=== PATIENT | female | born 1965 | race Caucasian/White ===

== ENCOUNTER 2018-12-05 23:32 | Inpatient (IN) | payer OTHER ==
[~2018-12-05] VITALS: Ht 152.4 cm; Wt 78.8 kg
[2018-12-05 23:34] VITALS: BP 132/94
[2018-12-06] VITALS (24 sets, daily range): BP systolic 118–191; BP diastolic 61–108
[2018-12-06 00:14] LABS: BASOPHILS 0.3 % (0.0-2.0); EOSINOPHILS 1.6 % (0.0-3.0); HEMATOCRIT 39.3 % (37.0-47.0); HEMOGLOBIN 12.8 gm/dL (12.0-15.0); LYMPHOCYTES 38.2 % (24.0-44.0); MCHC 32.6 g/dL (28.0-37.0); MCV 98.1 fL (80.0-100.0); MONOCYTES 6.6 % (1.0-8.0); PLATELET COUNT 325 thou/uL (150-400); POLYS 53.3 % (36.0-66.0); RDW 13.4 % (10.5-14.5); WBC 9.3 thou/uL (4.0-11.0)
[2018-12-06 00:17] LABS: URINE BILIRUBIN NEGATIVE (Negative); URINE BLOOD NEGATIVE (Negative); URINE CLARITY CLEAR; URINE COLOR YELLOW; URINE GLUCOSE-RANDOM* 3+ (Negative); URINE KETONES NEGATIVE (Negative); URINE LEUKOCYTES-REFLEX TRACE (Negative); URINE NITRITE-REFLEX NEGATIVE (Negative); URINE PROTEIN (DIPSTICK) NEGATIVE (Negative); URINE SPECIFIC GRAVITY <= 1.005 (1.005-1.035); URINE UROBILINOGEN 0.2 E.U./dl (0.2-1.0)
[2018-12-06 00:24] LABS: ANION GAP 13 mmol/L (7-16); BUN 7 mg/dL (7-18); CALCIUM 8.1 mg/dL (8.5-10.1); CHLORIDE 96 mmol/L (98-107); CO2 25 mmol/L (21-32); MAGNESIUM 1.7 mg/dL (1.8-2.4); POTASSIUM 3.1 mmol/L (3.5-5.1); SALICYLATE 3.8 mg/dL (2.8-20.0); SODIUM 134 mmol/L (136-145)
[2018-12-06 00:26] LABS: AMP/METHAMP Negative (Negative); BARBITURATES Negative (Negative); BENZODIAZEPINES Negative (Negative); COCAINE Negative (Negative); METHADONE Negative (Negative); OPIATES Negative (Negative); PCP Negative (Negative)
[2018-12-06 00:34] LABS: GLUCOSE 528 mg/dL (74-106)
--- NOTE | 2018-12-06 00:56 | NUR ---
PATIENT ARRIVES WITH EMPTY BOTTLE OF LYRICA 50MG (60 TABS FILLED 09/15/18) EMPTY BOTTLE OF EFFEXOR ER 75MG (30 TABS FILLED 05/13/18) EMPTY BOTTLE OF EFFEXOR ER 150 MG (30 TABS FILLED 05/13/18) LISINOPRIL 20 MG (30 TABS FILLED (09/15/18) - 3 TABS LEFT GABAPENTIN 300 MG (120 CAPS FILLED 09/15/18) - 27 CAPS LEFT [place] AMOUNT OF MEDICATION INGESTED
[2018-12-06] MEDS ORDERED: EFFEXOR XR150 MG PO (01:02)
[2018-12-06] MEDS ORDERED: LYRICA 50 MG50 MG PO (01:03)
[2018-12-06] MEDS ORDERED: LISINOPRIL2.5 MG PO (01:03)
[2018-12-06] MEDS ORDERED: NEURONTIN300 MG PO (01:03)
[2018-12-06] MEDS ORDERED: METFORMIN HCL500 M3 PO (01:04)
[2018-12-06 04:44] LABS: ANION GAP 13 mmol/L (7-16); BUN 5 mg/dL (7-18); CALCIUM 7.6 mg/dL (8.5-10.1); CHLORIDE 101 mmol/L (98-107); CO2 23 mmol/L (21-32); CREATININE 0.7 mg/dL (0.6-1.0); GLUCOSE 281 mg/dL (74-106); POTASSIUM 3.6 mmol/L (3.5-5.1); SODIUM 137 mmol/L (136-145)
--- NOTE | 2018-12-06 07:20 | NUR ---
REPORT TO DAY SHIFT RNSAL
--- NOTE | 2018-12-06 14:10 | EKG ---
[address] [address] ELECTROCARDIOGRAM REPORT Name: LONA MILAN Room #: 203-P [facility] IN .R.#: [id number] Admission: 12/06/18 Attend Phys: Lan Colon MD Discharge: Date of : 67 Report #: [id number] THIS REPORT FOR: //name// [facility] ED Test Date: 2018-12-06 Test Time: 00:41:42 Pat Name: LONA MILAN Department: Room: [facility] Gender: F Disability Aide: THIERNO : 1965 Requested By: Armando Anand Order Number: [id number] MD: Kiran Farmer Measurements Intervals [place] Rate: 109 P: 81 WV: 136 QRS: 59 QRSD: 88 T: -88 QT: 395 QTc: 533 Interpretive Statements Sinus tachycardia Borderline T abnormalities, inferior leads No previous ECG available for comparison Electronically Signed On 12-06-2018 14:10:11 CDT by Kiran Farmer [email or web address] <ELECTRONICALLY SIGNED> By: Kiran Farmer MD 12/06/18 1410 0041 Kiran Farmer MD /TINY
--- NOTE | 2018-12-06 18:09 | NUR ---
PT CARE ASSUMED APPROX 1240 FROM ED. PT DROWSY, EASILY AROUSABLE BUT DOES NOT SUSTAIN WAKEFULNESS. 1:[address] DUE TO PT BEING SUICIDE ATTEMPT. DENIES PAIN AND SOA. VSS. O2 IN PLACE. PT DESATURATES WITHOUT 3LNC. PT FOLLOWING SIMPLE COMMANDS AND ANSWERING YES/NO TO SIMPLE QUESTIONS. ALCOHOL WITHDRAWL ASSESSMENT IS LESS THAN 8 BUT WAS INCREASING PT BECAME MORE AROUSABLE. WILL CONTINUE WITH ASSESSMENTS Q4. PT TOLERATING POC. NSG ASSISTED PT IN CONTACTING FAMILY MEMEBERS. NO ONE AT BEDSIDED AT ANY POINT SINCE CARE ASSUMED. PT UP TO BSC WITH MIN 1 PERSON ASSIST. NO DISTRESS NOTED.
[2018-12-06 18:51] LABS: BE(vivo) -10.9 mmol/L (-2 to +3); HCO3 19.5 mmol/L (22.0-26.0); PCO2 62.5 mmHg (35.0-45.0); PO2 63.1 mmHg (80.0-100.0); sO2 83.3 % (92.0-98.0)
[2018-12-06 18:52] LABS: pH 7.111 (7.360-7.450)
--- NOTE | 2018-12-06 19:04 | NUR ---
NSG WAS AT BEDSIDE AT APPROX 1800 GIVING PT INSULIN FOR HYPERGLYCEMIA. PT WAS AWAKE AND BREATHING NORMALLY. NO TACHYNEA OR LABORED BREATHING NOTED. SITTER CALLED OUT AT APPROX 1830 AND REPORTED THAT PT WAS NOT DOING WELL. NURSING CAME TO BEDSIDE AND ASSESSED PT WAS LABORED BREATHING AND SOA. O2 SAT WAS NOTED 70% AND NONREBREATHER WAS PLACED. OTHER VSS OBTAINED.
--- NOTE | 2018-12-06 19:50 | NUR ---
PT'S DAUGHTER GISSELLE CONTACTED. DENIES QUESTIONS.
--- NOTE | 2018-12-06 20:02 | NUR ---
PT TRANSFERRED from CCU to ICU 250 due to respiatoy distress at 1915. Pt very drowsy, arouses to noxious stimuli only. Monitor sinus tach 110-120's. Pt initially hypertensive (170's /100's) but became normotensive after quigley cath placed at 123. Pt had immediate output of approximatly [address] Courtney here now; PICC line being placed due to patient having poor peripheral access.
[2018-12-06 20:05] LABS: BE(vivo) -4.4 mmol/L (-2 to +3); HCO3 21.7 mmol/L (22.0-26.0); PCO2 43.4 mmHg (35.0-45.0); PO2 123.5 mmHg (80.0-100.0); sO2 98.2 % (92.0-98.0)
[2018-12-06 20:06] LABS: pH 7.316 (7.360-7.450)
--- NOTE | 2018-12-06 20:47 | NUR ---
CXR VIEWED BY DR KRAMER AND PICC RELEASED FOR IMMEDIATE USE PER PROTOCOL TO GERMAINE SUAREZ.
[2018-12-06 20:48] LABS: HEMATOCRIT 40.9 % (37.0-47.0); HEMOGLOBIN 13.3 gm/dL (12.0-15.0); MCH 32.2 pg (26.0-34.0); MCHC 32.5 g/dL (28.0-37.0); MCV 99.1 fL (80.0-100.0); PLATELET COUNT 339 thou/uL (150-400); RBC 4.13 mil/uL (4.20-5.00); RDW 13.6 % (10.5-14.5); WBC 12.2 thou/uL (4.0-11.0)
[2018-12-06 20:52] LABS: CREATININE 1.2 mg/dL (0.6-1.0); POTASSIUM 4.6 mmol/L (3.5-5.1)
[2018-12-06 21:02] LABS: ALBUMIN 2.7 g/dL (3.4-5.0); TOTAL BILIRUBIN 0.7 mg/dL (<0.1-1.0); TOTAL PROTEIN 7.3 g/dL (6.4-8.2); TROPONIN-I 0.11 ng/mL (<0.06)
[2018-12-06 21:08] LABS: ABSOLUTE NEUTROPHILS 11.2 thou/uL (1.4-8.2)
[2018-12-06 21:09] LABS: ANISOCYTOSIS 1+; POLYCHROMASIA OCCASIONAL
--- NOTE | 2018-12-06 21:10 | NUR ---
cxr states too deep withdrew PICC LINE ADDITIONAL 1CM FOR TOTAL OF 3CM. COBAN APPLIED PT VERY DIAPHORETIC.
--- NOTE | 2018-12-06 22:12 | NUR ---
Pt continues to be lethargic and drowsy but awakens to verbal stimuli, will open eyes to name. Monitor continues ST rate 104-120. O2 sat 99% on Bipap 05/08, FiO2 85%.
[2018-12-07] VITALS (44 sets, daily range): BP systolic 104–185; BP diastolic 55–103
--- NOTE | 2018-12-07 02:14 | NUR ---
Pt desaturating in to mid to low 80's; bipap turned up to 100%; tapan respiratory and Dr. Courtney
--- NOTE | 2018-12-07 02:30 | NUR ---
Waiting on ABG and Dr Courtney to return page. Pt RR 35-42, sat up to 93% on FiO2 100% but breathing very labored, use of accessory muscles. Pt has had a total of 3 mg IVP Ativan since 99 or CIWA 10-18. 350 cc urine output since 2199.
[2018-12-07 02:34] LABS: BE(vivo) -3.4 mmol/L (-2 to +3); HCO3 23.4 mmol/L (22.0-26.0); PCO2 48.6 mmHg (35.0-45.0); PO2 66.8 mmHg (80.0-100.0); sO2 91.2 % (92.0-98.0)
[2018-12-07 02:35] LABS: pH 7.301 (7.360-7.450)
--- NOTE | 2018-12-07 03:26 | NUR ---
Pt intubated at 0300 by ED physician. Given 100 mg Succylcholine and 20 mg Etomidate IVP for intubation; # 7.5 ETT, 26 cm at the lip. OG placed, 64 cm at lip. Chest x-ray in progress for confirmation. Vent settings Tv 500, FiO2 100%, AC 16, peep 8. Monitor still sinus tach but < 110, Sat up to 96%, pt RR 25-27, BP back to normotensive.
[2018-12-07 04:56] LABS: BE(vivo) -2.4 mmol/L (-2 to +3); HCO3 21.7 mmol/L (22.0-26.0); PCO2 35.9 mmHg (35.0-45.0); PO2 86.8 mmHg (80.0-100.0); sO2 96.7 % (92.0-98.0)
[2018-12-07 05:29] LABS: HEMATOCRIT 40.9 % (37.0-47.0); HEMOGLOBIN 13.5 gm/dL (12.0-15.0); MCH 32.6 pg (26.0-34.0); MCV 98.7 fL (80.0-100.0); RBC 4.14 mil/uL (4.20-5.00); RDW 13.6 % (10.5-14.5); WBC 10.6 thou/uL (4.0-11.0)
[2018-12-07 05:47] LABS: CALCIUM 7.6 mg/dL (8.5-10.1); POTASSIUM 4.8 mmol/L (3.5-5.1)
[2018-12-07 12:21] LABS: CHOLESTEROL 175 mg/dL (<200); HDL CHOLESTEROL 34 mg/dL (>40); LDL CHOLESTEROL 75 mg/dL (<100); TC:HDL 5.1 Ratio (Not establshd); TRIGLYCERIDE 332 mg/dL (<150); VLDL 66 mg/dL (<40)
--- NOTE | 2018-12-07 14:25 | NUR ---
Case opened to follow for support and dc planning. Pt is currently in ICU and intubated. She was admitted for intentional overdose and ethol w/d. Pt was initially screened for inpt psych tx by the [facility] mobile plaster patternmaker. She has three notorized affidavits on her chart. No family here at present. Dtr was in the ER with her and completed an affidavit. She reported that her mother was found down by her brother who lives with their parents. The pt and her spouse are both alcoholics and drink hard liquor. They also have a history of using meth but dtr reported she does not believe they have used in the past 5 months. The pt and spouse were drinking and had a fight prior to her overdose and attempted suicide. The pt acknowledged her intent to staff and reported that she has had a prior attempt many years ago. The plaster patternmaker indicated she was voluntary and willing to go to inpt tx. Message left for pt's dtr Sasha to check on insurance coverage and request any additional mental health or substance abuse history /or treatment. The pt was indep with mobility and was likely working prior to admission. Will alert [employer] to possible referral if she is pt pay. Will follow along and reassess as the pt is extubated and able to participate in her dc planning.
--- NOTE | 2018-12-07 19:56 | NUR ---
PT IS BREATHING IN THE RATE OF 38-42 DESPITED SEDATION AND INTERVENTIONS WITH INCREASED WORK OF BREATHING. DR. KRAMER PAGED AT 1944 WITH A RETURN CALL AT 1950. DR. KRAMER WAS UPDATED ON PT CONDITION WITH CURRENT VITALS. DR. KRAMER WANTS TO ORDER A STAT ABG. CONTINUE TO MONITOR.
[2018-12-07 20:58] LABS: BE(vivo) -0.5 mmol/L (-2 to +3); HCO3 22.9 mmol/L (22.0-26.0); PCO2 33.5 mmHg (35.0-45.0); PO2 79.6 mmHg (80.0-100.0); pH 7.452 (7.360-7.450); sO2 96.4 % (92.0-98.0)
--- NOTE | 2018-12-07 21:13 | NUR ---
DR. KRAMER UPDATED ON PT'S ABG RESULTS. ORDERS TO INCREASE HER VENTILATION SETTING PEEP TO 10. PROVIDER WILL ADD ATIVAN AND FENTANYL PRN.
[2018-12-08] VITALS (24 sets, daily range): BP systolic 112–175; BP diastolic 60–88
[2018-12-08 05:48] LABS: HEMATOCRIT 35.9 % (37.0-47.0); HEMOGLOBIN 11.6 gm/dL (12.0-15.0); MCH 32.1 pg (26.0-34.0); MCHC 32.3 g/dL (28.0-37.0); MCV 99.4 fL (80.0-100.0); RBC 3.61 mil/uL (4.20-5.00); RDW 13.7 % (10.5-14.5)
[2018-12-08 06:02] LABS: CALCIUM 7.6 mg/dL (8.5-10.1); CREATININE 0.8 mg/dL (0.6-1.0); POTASSIUM 3.7 mmol/L (3.5-5.1)
[2018-12-08 07:36] LABS: HCO3 21.4 mmol/L (22.0-26.0); PCO2 36.1 mmHg (35.0-45.0); sO2 96.1 % (92.0-98.0)
--- NOTE | 2018-12-08 08:05 | NUR ---
Pt showing s/s of withdrawal. Tachycardic, tacypneic, diaphoretic, hypertensive. Too soon for Ativan. Fentanyl 50mcg given IV for discomfort. Partial bath given. Repositioned.
--- NOTE | 2018-12-08 08:31 | NUR ---
Daughter attempting to visit patient and stay at bedside. Family member notified there will be no visitors until pt cleared for visitors by Dr. De La Fuente (Psych). Daughter upset but did leave and go to waiting room. 1:1 sitter at bedside.
--- NOTE | 2018-12-08 08:53 | NUR ---
Dr. Courtney notified of withdrawal s/s. Order rec'd for additional one time dose ativan 2mg IV.
--- NOTE | 2018-12-08 08:59 | 2DMMODE ---
[facility] [place] [place] [address] 2 D/M-MODE ECHOCARDIOGRAM Name: LONA MILAN Room #: 246-P [facility] IN [facility].#: [id number] Admission: 12/06/18 Attend Phys: Lan Colon MD Discharge: Date of : 67 Report #: [id number] THIS REPORT FOR: //name// APPROVED REPORT Study performed: 12/08/2018 06:26:57 EXAM: Comprehensive 2D, Doppler, and color-flow Echocardiogram Patient Location: ICU Room #: [facility] Status: routine BSA: 1.84 HR: 118 bpm BP: 149/67 mmHg Rhythm: Tachycardia Other Information Study Quality: Adequate Technically limited study due to body habitus, patient on vent. Indications Congestive Heart Failure Pulmonary edema, Respiratory failure. Status post overdose. Hx: DM, HTN, Tobacco and ETOH abuse. 2D Dimensions RVDd: 34.13 mm IVSd: 9.55 (7-11mm) LVOT Diam: 19.25 (18-24mm) LVDd: 48.10 mm PWd: 10.12 (7-11mm) Ascending Ao: 30.02 (22-36mm) LVDs: 36.67 (25-40mm) Aortic Root: 29.76 mm Volumes Left Atrial Volume (Systole) Single Plane 4CH: 37.25 mL Single Plane 2CH: 56.85 mL LA ESV Index: 27.00 mL/m2 Aortic Valve AoV Peak Evert.: 1.47 m/s AO Peak Gr.: 8.66 mmHg LVOT Max P.08 mmHg LVOT Max V: 0.88 m/s ROMÁN Vmax: 1.[address] [facility] [address] [place] [address] 2 D/M-MODE ECHOCARDIOGRAM Name: LONA MILAN Mitra Room #: [address] [place] [address] [place] [facility]#: [id number] Admission: 12/06/18 Attend Phys: Lan Colon MD Discharge: Date of : 67 Report #: [id number] Mitral Valve MV Decel. Time: 130.68 ms MV E Max Evert.: 0.94 m/s Pulmonary Valve PV Peak Evert.: 1.02 m/s PV Peak Gr.: 4.15 mmHg Tricuspid Valve TR Peak Evert.: 2.50 m/s TR Peak Gr.: 25.00 mmHg Left Ventricle The left ventricle is normal size. Regional wall motion is not well visualized but grossly normal. There is normal left ventricular wall thickness. Left ventricular systolic function is normal. LVEF is 50-55%. This study is not technically sufficient to allow evaluation of the LV diastolic function. Right Ventricle Right ventricle is not well visualized. The right ventricular systolic function is normal. Atria The left atrium size is normal. The right atrium size is normal. Aortic Valve The aortic valve is normal in structure. No aortic regurgitation is present. There is no aortic valvular stenosis. Mitral Valve The mitral valve is normal in structure. Trace mitral regurgitation. Tricuspid Valve The tricuspid valve is normal in structure. Trace tricuspid regurgitation. Estimated PAP is 25mmHg plus the right atrial pressure. Pulmonic Valve The pulmonary valve is normal in structure. Trace pulmonic regurgitation. Great Vessels The aortic root is normal in size. The ascending aorta is normal in size. IVC is not well visualized. [facility] [place] [address] [place] [address] 2 D/M-MODE ECHOCARDIOGRAM Name: LONA MILAN Room #: 246-P [facility] IN M.R.#: [id number] Admission: 12/06/18 Attend Phys: Lan Colon MD Discharge: Date of : 67 Report #: [id number] Pericardium There is no pericardial effusion. <Conclusion> Limited study Left ventricular systolic function is normal. Regional wall motion is not well visualized but grossly normal. LVEF is 50-55%. The aortic valve is normal in structure. No aortic regurgitation or stenosis. The mitral valve is normal in structure. Trace mitral regurgitation. Trace tricuspid regurgitation. Estimated pulmonary artery pressure of 25mmHg plus the right atrial pressure. There is no pericardial effusion. <ELECTRONICALLY SIGNED> By: Demetrio Meza MD, [facility] 12/08/18 0859 0859 8 Demetrio Meza MD, FACC /INF
--- NOTE | 2018-12-08 09:14 | HC ---
[facility] [place] [address] CONSULTATION Name: LONA MILAN Room #: 246-P [facility] IN ..#: [id number] Admission: 12/06/18 Attend Phys: Lan Colon MD Discharge: Date of : 67 Report #: [id number] THIS REPORT FOR: //name// CC: FAM unknown Lan Colon DATE OF SERVICE: 12/07/2018 CONSULTING PHYSICIAN: Dr. Colon. REASON FOR CONSULTATION: Uncontrolled type 2 diabetes mellitus. HISTORY OF PRESENT ILLNESS: This is a 53-year-old female patient whose medical background is noted for hypertension, type 2 diabetes mellitus, depression in addition to history of alcohol abuse. Reportedly, the patient presented to the ER in a state of confusion following the consumption of large quantities of her medications, perhaps in an attempt to hurt herself. The patient was then deemed to be in respiratory failure and ended up being transferred to the ICU and eventually was placed on mechanical ventilation. At the time of my visit with the patient, she was intubated and sedated and unavailable for a detailed history, there were no visitors with her in the room as well. My history is obtained primarily from reviewing her medical chart. Again, she is reportedly known to have type 2 diabetes mellitus and her home medications are only noted for metformin 500 mg p.o. daily and this is only an antidiabetic agent and I could find on record for her. I do not know much about her level of control, but her blood glucose values that were recorded here were predominantly elevated in the severe hyperglycemia range. She is also known to have hypertension and her medications are noted for lisinopril 20 mg daily and she is also noted to be on two neuropathic agents Lyrica and gabapentin, perhaps due to diabetic neuropathy. REVIEW OF SYSTEMS: Could not be obtained at the present time due to the patient's intubated and sedated state. PAST MEDICAL HISTORY: As per her medical record, noted for type 2 diabetes mellitus, hypertension, diabetic neuropathy, alcoholism. OUTPATIENT MEDICATIONS: Include Effexor XR 150 mg daily, gabapentin 300 mg b.i.d., Lyrica 50 mg t.i.d., lisinopril 20 mg daily, metformin 500 mg daily. ALLERGIES: I did not find any noted drug allergies other than ACETAMINOPHEN on her chart. [address] [address] CONSULTATION Name: LONA MILAN Room #: 246-P [facility] IN .R.#: [id number] Admission: 12/06/18 Attend Phys: Lan Colon MD Discharge: Date of : 67 Report #: [id number] SOCIAL HISTORY: Reportedly, she is a smoker of 1 pack per day. PHYSICAL EXAMINATION: GENERAL: The patient is intubated and sedated. VITAL SIGNS: Blood pressure is 126/102 mmHg, heart rate is 121 beats per minute, respirations 28 per minute, temperature 36.5 degrees. HEENT: Anicteric sclerae. NECK: Supple, without JVD, carotid bruits or lymphadenopathy. I do not appreciate thyromegaly. CHEST: Noted for moderate entry bilaterally with scattered rales, but no wheezes or crackles. HEART: Regular rate and rhythm, but tachycardic, no gallops or murmurs. ABDOMEN: Soft and lax. No guarding. Sluggish bowel sounds. EXTREMITIES: Lower extremity exam noted for trace ankle edema bilaterally, but no skin breaks, ulcerations or other deformities. NEUROLOGIC: The patient is sedated, could not be evaluated for this aspect. SKIN: Grossly negative for rash, ulceration or other major abnormalities. PSYCHIATRIC: Could not be evaluated at this point in time due to the patient's sedated state. LABORATORY RESULTS: Blood glucose on arrival was 375 mg/dL. Since her admission, the patient had consistently been above 300 mg/dL. Sodium 139, potassium 4.8, chloride 105, CO2 of 25, anion gap 9, BUN 16, creatinine 1.0, AST 60, total bilirubin 0.7, calcium 7.6, magnesium 1.7, alkaline phosphatase 127, ALT 44, total protein 7.3, albumin 2.7, GFR 58. Total CPK 255, troponin 0.11. BNP 1046. Alcohol 282. Salicylate 3.8. White blood count 10.6, hemoglobin 13.5, hematocrit 40.9, platelets 318. ASSESSMENT AND PLAN: 1. Type 2 diabetes mellitus. As noted above, the patient has a known history of type 2 diabetes mellitus, but she is unable to conduct a detailed history, interview on the outlook of this diabetes and the presence of complications, although her chart is indicative of diabetic neuropathy for which she is under treatment currently. Objectively, the patient is under severe hyperglycemia as indicated by the recorded blood glucose values so far. This would be best handled by insulin therapy and towards that end, I will start the patient on basal bolus regimen in the form of Lantus insulin 18 units daily in addition to maintaining coverage with Humalog supplemental scale, moderate intensity. Blood glucose monitoring will commence q. 6 hours and further therapeutic adjustments will be made accordingly. Once the patient is extubated and resumes a meaningful p.o. intake, this will likely again change her therapeutic requirements and outlook. In order to gain further insight into the patient's diabetic state prior to this admission, I will obtain a hemoglobin A1c as well. 2. Hypertension. The patient's level of blood pressure control has been satisfactory, she is to continue with the current regimen. 3. Hyperlipidemia. As a diabetic, the patient out to be evaluated for [facility] [address] [place] [address] CONSULTATION Name: LONA MILAN Room #: 246-P [facility] IN [facility]#: [id number] Admission: 12/06/18 Attend Phys: Lan Colon MD Discharge: Date of : 67 Report #: [id number] hyperlipidemia and treated for this if found to be under suboptimal control. A lipid panel will be requested. 4. Thyroid dysfunction. Given the high incidence of thyroid dysfunction in diabetic patients, I will screen for this disorder with a TSH and free T4. 5. Diabetic neuropathy. As noted above, the patient seems to have a history of diabetic neuropathy and is under active treatment for that with gabapentin and Lyrica. This will be considered later on once the patient shows more stability and is extubated. I appreciate this consultation by Dr. Colon. <ELECTRONICALLY SIGNED> By: Lexie Britton MD 12/08/18 0914 1141 0231 Lexie Britton MD /nt
--- NOTE | 2018-12-08 10:36 | NUR ---
Pt less diaphoretic, BP and HR slightly better. Dr. Courtney on rounds. Lasix 60mg SLOW IVP given for increased work of breathing, use of accessory muscles, fluid overload; BNP 1901. Lungs w/ coarse rhonchi; FiO2 85%. Decision made by Doc Colon and Sherwin that patient does not need 1:1 sitter while sedated on ventilator. NO family visitation allowed until cleared by Psych.
--- NOTE | 2018-12-08 16:03 | NUR ---
Order rec'd by Dr. Colon that patient's daughter, Sasha Nicole, may visit daughter if a sitter is present in the room at all times. Otherwise, no visitation until cleared by Dr. De La Fuente.
--- NOTE | 2018-12-08 18:38 | NUR ---
Ativan given qvery 4 hrs IV. Propofol at 50 mcg/kg/min. Tachycardic and tachypneic but worse with reduction in sedation. Bilateral soft wrist restraints remain in place. No weaning from ventilator today. AC 16/450/85%/10. Diuresed 2300ml after lasix dose. Lungs remains coarse. Xopenex neb treatment added q 6hr. Pt remains NPO. ? Tubefeeding tomorrow. Daughter given update. Dr. Courtney to call. Daughter in agreement that she may not visit in room with mother without sitter present. Plan of care reviewed and updated as able. No progress towards discharge goals.
[2018-12-09] VITALS (24 sets, daily range): BP systolic 128–170; BP diastolic 52–96
[2018-12-09 08:38] LABS: HCO3 21.2 mmol/L (22.0-26.0); PCO2 43.3 mmHg (35.0-45.0); PO2 131.2 mmHg (80.0-100.0); pH 7.307 (7.360-7.450); sO2 98.4 % (92.0-98.0)
[2018-12-09 09:15] LABS: ABSOLUTE NEUTROPHILS 9.8 thou/uL (1.4-8.2); BASOPHILS 0.6 % (0.0-2.0); EOSINOPHILS 1.7 % (0.0-3.0); HEMATOCRIT 34.2 % (37.0-47.0); HEMOGLOBIN 11.2 gm/dL (12.0-15.0); LYMPHOCYTES 9.6 % (24.0-44.0); MCH 32.5 pg (26.0-34.0); MCHC 32.7 g/dL (28.0-37.0); MCV 99.4 fL (80.0-100.0); MONOCYTES 2.8 % (1.0-8.0); PLATELET COUNT 175 thou/uL (150-400); POLYS 85.3 % (36.0-66.0); RBC 3.44 mil/uL (4.20-5.00); RDW 13.4 % (10.5-14.5); WBC 11.5 thou/uL (4.0-11.0)
[2018-12-09 09:27] LABS: ALBUMIN 1.8 g/dL (3.4-5.0); CREATININE 0.7 mg/dL (0.6-1.0); POTASSIUM 3.2 mmol/L (3.5-5.1); TOTAL PROTEIN 6.3 g/dL (6.4-8.2)
--- NOTE | 2018-12-09 16:27 | NUR ---
REMAINS ON VENT, SEDATED. DTR REPORTS PT'S SPOUSE DECLINED TO SIGN UP FOR COBRA COVERAGE. HE LOST HIS JOB IN AND IS STILL IN WINDOW FOR COBRA COVERAGE. CM DIRECTOR UPDATED. NO W/E DC PLANNED.
[2018-12-09 17:40] LABS: MAGNESIUM 2.5 mg/dL (1.8-2.4); POTASSIUM 3.7 mmol/L (3.5-5.1)
--- NOTE | 2018-12-09 19:14 | NUR ---
Shift summary: Pt remains sedated on vent. Attempts to wean down propofol unsuccessful as patient biting on ETT and will not release. RT asked to place bite block. Pt withdraws and localizes to pain but does not track or follow directions. VSS. Afebrile. FiO2 decreased to 60%, PEEP decreased to 7. Copious secretions via ETT and coughed around ETT. Lungs coarse. OG to LIS with bile colored drng. Plan to begin tubefeed tomorrow. BS controlled. No stools. Godoy with dark dot almost orange colored urine. Potassium and Magnesium replaced today. Plan of care reviewed and updated as able.
[2018-12-10] VITALS (24 sets, daily range): BP systolic 133–167; BP diastolic 52–101
--- NOTE | 2018-12-10 04:11 | NUR ---
NO OVERNIGHT EVENTS. VSS. ASSESSMENTS AND VITAL SIGNS CHARTED. MEDICATION TITRATION CHARTED. PT. PROGRESSING TOWARDS GOALS. WILL CONTINUE TO MONITOR.
[2018-12-10 05:17] LABS: ABSOLUTE NEUTROPHILS 6.7 thou/uL (1.4-8.2); BASOPHILS 0.7 % (0.0-2.0); EOSINOPHILS 3.1 % (0.0-3.0); HEMATOCRIT 31.9 % (37.0-47.0); HEMOGLOBIN 10.3 gm/dL (12.0-15.0); LYMPHOCYTES 14.2 % (24.0-44.0); MCH 32.2 pg (26.0-34.0); MCHC 32.4 g/dL (28.0-37.0); MCV 99.6 fL (80.0-100.0); MONOCYTES 5.1 % (1.0-8.0); PLATELET COUNT 195 thou/uL (150-400); POLYS 76.9 % (36.0-66.0); RBC 3.21 mil/uL (4.20-5.00); RDW 13.3 % (10.5-14.5); WBC 8.8 thou/uL (4.0-11.0)
[2018-12-10 05:20] LABS: BE(vivo) -2.2 mmol/L (-2 to +3); HCO3 23.2 mmol/L (22.0-26.0); PCO2 41.8 mmHg (35.0-45.0); PO2 99.8 mmHg (80.0-100.0); pH 7.362 (7.360-7.450); sO2 97.3 % (92.0-98.0)
[2018-12-10 05:31] LABS: ALBUMIN 1.6 g/dL (3.4-5.0); CALCIUM 7.8 mg/dL (8.5-10.1); CREATININE 0.6 mg/dL (0.6-1.0); POTASSIUM 3.3 mmol/L (3.5-5.1); TOTAL PROTEIN 5.9 g/dL (6.4-8.2)
--- NOTE | 2018-12-10 06:10 | NUR ---
PT. SON CALLED AT 0600 [employer] THREATNED TO CALL [employer] SAL[employer] ABOUT VISITING RIGHTS OF PT. HE DOES NOT WANT GISSELLE TO HAVE VISITNG RIGHTS AT THIS TIME. HE IS VERY UPSET THAT GISSELLE IS THE ONLY ONE TO BE ABLE TO VISIT. DOCTOR AWARE OF THIS AGREEMENT. STAFF NURSE AND CHARGE NURSE TRIED TO EXPLAIN TO THE SON THAT THIS IS AN AGREEMENT PRIOR TO THIS SHIFT BY DOCTOR APODACA.
--- NOTE | 2018-12-10 10:59 | NUR ---
1055: DAUGHTER PRESENT AT BEDSIDE FOR A SUPERVISED VISIT. NURSING AT BEDSIDE.
--- NOTE | 2018-12-10 11:25 | NUR ---
11:24 DAUGHTER LEFT BEDISIDE OF PATIENT, SUPERVISED VISIT COMPLETED PER NURSING STAFF.
[2018-12-10 12:48] LABS: BE(vivo) -4.5 mmol/L (-2 to +3); HCO3 20.4 mmol/L (22.0-26.0); PCO2 37.2 mmHg (35.0-45.0); PO2 101.1 mmHg (80.0-100.0); pH 7.357 (7.360-7.450); sO2 97.4 % (92.0-98.0)
--- NOTE | 2018-12-10 18:27 | NUR ---
PATIENT HAD PULMONARY EDEMA WHERE LASIX IV WAS GIVEN, CROUCH HAD ADEQUATE OUTPUT. WENT FOR HEAD CT SCAN. TUBE FEEDING STARTED AT 1700. DAUGHTER VISISTED FOR 30 MINUTES, VERBALIZED UNDERSTANDING OF VISITING PLAN. NO SIGNS OF ACUTE DISTRESS NOTED AT THIS TIME. WILL CONTINUE TO MONITOR.
[2018-12-11] VITALS (27 sets, daily range): BP systolic 98–193; BP diastolic 38–97
--- NOTE | 2018-12-11 01:18 | NUR ---
DAUGHTER VISITED AT 2130, AND STAYED FOR 30 MINUTES. THE VISIT WAS SUPERVISED THE ENTIRE TIME, CHARGE NURSE IN ROOM WITH DAUGHTER AND PT. PT STABLE ON THE VENT ON PROPOFOL GTT, NO S/S OF ACUTE DISTRESS, WILL MONITOR.
[2018-12-11 05:07] LABS: HEMATOCRIT 33.6 % (37.0-47.0); MCH 32.2 pg (26.0-34.0); MCHC 32.6 g/dL (28.0-37.0); MCV 98.6 fL (80.0-100.0); PLATELET COUNT 241 thou/uL (150-400); RBC 3.41 mil/uL (4.20-5.00); RDW 13.2 % (10.5-14.5)
[2018-12-11 05:13] LABS: ALBUMIN 1.8 g/dL (3.4-5.0); CALCIUM 8.8 mg/dL (8.5-10.1); CREATININE 0.6 mg/dL (0.6-1.0); MAGNESIUM 1.7 mg/dL (1.8-2.4); POTASSIUM 3.2 mmol/L (3.5-5.1); TOTAL BILIRUBIN 0.9 mg/dL (<0.1-1.0); TOTAL PROTEIN 6.4 g/dL (6.4-8.2)
[2018-12-11 05:25] LABS: HCO3 25.7 mmol/L (22.0-26.0); PCO2 41.3 mmHg (35.0-45.0); PO2 148.2 mmHg (80.0-100.0); pH 7.412 (7.360-7.450); sO2 98.9 % (92.0-98.0)
[2018-12-11 06:20] LABS: ABSOLUTE NEUTROPHILS 4.6 thou/uL (1.4-8.2); LARGE PLATELETS OCCASIONAL
[2018-12-11 11:02] LABS: BE(vivo) 1.5 mmol/L (-2 to +3); HCO3 27.1 mmol/L (22.0-26.0); PCO2 46.8 mmHg (35.0-45.0); PO2 95.9 mmHg (80.0-100.0); sO2 97.1 % (92.0-98.0)
--- NOTE | 2018-12-11 17:59 | NUR ---
PATIENT'S DAUGHTER ARRIVED AT 1740 FOR VISITATION, LEFT AT 1800 PER 30 MINUTE ORDER. NURSE PRESENT AT THE BEDSIDE IN PLACE OF SITTER.
--- NOTE | 2018-12-11 19:22 | NUR ---
PATIENT SEDATED ON PRECEDEX AND WEANED OFF PROPOFOL. THE GOAL PER DR. KRAMER IS TO COMFORTABLY AWAKE PATIENT ACCORDING TO RESPIRATORY STATUS. WEANING TRIAL COMPLETED FROM [id number], ABG LABWORK IMPROVED. PATIENT TOLERATING TUBE FEEDING AT GOAL RATE OF 60/HR WITH MINIMAL RESIDUALS. CRUOCH PATENT WITH ADEQUATE OUTPUT. SPOKE WITH DAUGHTER ABOUT PLAN OF CARE, SHE VERBALIZED UNDERSTANDING. BROTHER WHO LIVES IN [place] (TOSHA [phone]) CALLED FOR MEDICAL INFORMATION AND STATED HE WANTS TO SPEAK TO TELEVISION ENGINEERING TEACHER ABOUT PLACEMENT IN [place] POST-DISCHARGE. TOSHA WAS MADE AWARE THAT NO MEDICAL INFORMATION CAN BE GIVEN TO HIM AND TO SPEAK WITH PATIENT'S DAUGHER (GISSELLE). GISSELLE VISITED FROM [id number] AND STATED SHE DID NOT WANT TOSHA WITH THE PRIVACY CODE AND WAS UNAWARE THAT HE HAD IT. ALL FAMILY PHONE CALLS WILL BE DIRECTED TO PATIENT'S DAUGHTER GISSELLE. GISSELLE STATED THAT PATIENT HAD LEFT BIG TOENAIL REMOVED AND RIGHT TOENAIL ALSO REMOVED. IT IS NO-HEALING ON RIGHT TOENAIL, NIGHT NURSE MADE AWARE AND WILL FOLLOW PLAN. NO SIGNS OF ACUTE DISTRESS NOTED AT THIS TIME. WILL CONTINUE TO MONITOR.
--- NOTE | 2018-12-11 21:14 | NUR ---
AT 2044 PT. HAD INCREASED RESTLESSNESS, AGITATION, AND WAS COUGHING CONSISTENTLY. PROPOFOL GTT WAS RESUMED AT THAT TIME FOR PT. COMFORT. MEDICATION TITRATION CHARTED.
[2018-12-12] VITALS (25 sets, daily range): BP systolic 116–186; BP diastolic 41–98
[2018-12-12 04:57] LABS: BE(vivo) 2.7 mmol/L (-2 to +3); HCO3 26.9 mmol/L (22.0-26.0); PO2 102.3 mmHg (80.0-100.0); pH 7.446 (7.360-7.450); sO2 97.9 % (92.0-98.0)
--- NOTE | 2018-12-12 05:24 | NUR ---
NO OVERNIGHT EVENTS. MEDICATION TITRATION CHARTED. ASSESSMENTS AND VITAL SIGNS CHARTED. PT. SHOULD BE ABLE TO DO CPAP TRIAL TODAY. STILL NOT FOLLOWING COMMANDS. PT. IS PROGRESSING TOWARDS GOALS. CONTINUE TO FOLLOW POC. WILL CONTINUE TO MONITOR.
[2018-12-12 05:36] LABS: HEMATOCRIT 35.6 % (37.0-47.0); HEMOGLOBIN 11.5 gm/dL (12.0-15.0); MCH 31.8 pg (26.0-34.0); MCHC 32.4 g/dL (28.0-37.0); MCV 98.1 fL (80.0-100.0); PLATELET COUNT 258 thou/uL (150-400); RBC 3.62 mil/uL (4.20-5.00); RDW 13.4 % (10.5-14.5); WBC 8.9 thou/uL (4.0-11.0)
[2018-12-12 06:13] LABS: ALBUMIN 1.7 g/dL (3.4-5.0); CALCIUM 8.9 mg/dL (8.5-10.1); CREATININE 0.6 mg/dL (0.6-1.0); MAGNESIUM 1.8 mg/dL (1.8-2.4); TOTAL BILIRUBIN 0.6 mg/dL (<0.1-1.0); TOTAL PROTEIN 6.7 g/dL (6.4-8.2)
[2018-12-12 09:16] LABS: ABSOLUTE NEUTROPHILS 6.5 thou/uL (1.4-8.2); METAMYELOCYTES 1 %; MYELOCYTES 3 %
[2018-12-12 09:17] LABS: ANISOCYTOSIS SLIGHT
[2018-12-12 09:53] LABS: BE(vivo) 2.1 mmol/L (-2 to +3); HCO3 26.8 mmol/L (22.0-26.0); PCO2 42.2 mmHg (35.0-45.0); PO2 100.2 mmHg (80.0-100.0); pH 7.421 (7.360-7.450); sO2 97.7 % (92.0-98.0)
--- NOTE | 2018-12-12 11:41 | NUR ---
Nutrition: Current tube feeds provide 144% kcal needs. REC change formula to Vital HP (appropriate in the setting of hyperglycemia/DM) to prevent overfeeding obese ICU patient. Goal rate 50 mL/hr.
--- NOTE | 2018-12-12 12:31 | NUR ---
FOLLOWING FOR DC PLANNING. CLINICAL INFO REVIEWED. REMAINS ON VENT AND CPAP THIS AM. MET WITH PT'S DTR GISSELLE. OBTAINED COPY OF PT'S SPOUSE'S SIGNED COBRA PAPERWORK. GISSELLE STATES HER STEP DAD STILL NEEDS TO WRITE THE CHECK FOR PAYMENT. GISSELLE ALSO REQUESTING HER BROTHER HAVE VISITATION. INFORMED DANIELA RAMIREZ AND TRANSPLANT COORDINATORDANIELA LIPSCOMB WHO WILL LOOK INTO THIS REQUEST. GISSELLE REQUESTS NOTIFICATION OF DECISION.
--- NOTE | 2018-12-12 17:21 | NUR ---
SPOKE WITH JOSE FROM CASE MANAGEMENT, SHE REPORTS DAUGHTER SAID SON WOULD LIKE TO VISIT PT.-SON HAS PREVIOUSLY NOT BEEN ALLOWED-SEE PAST DOCUMENTATION- SPOKE WITH SUPERVISOR CAP AND HAT PRODUCTION ABOUT REQUEST- STAFF INTERNIST OFFICE BASED ONLY SAID UNLESS PT OUTCOME BECOMES POOR/GRIM SON WILL NOT BE ALLOWED TO VISIT. IF STAFF IS TO SEE HIM, THEY ARE TO CALL SECURITY. CONCHIS PITTS UPDATED ON REQUEST.
--- NOTE | 2018-12-12 17:28 | NUR ---
PT REMAINS ON VENTILATOR AND PRECEDEX, MODERATE TO LARGE AMOUNTS OF SECRETIONS SUCTIONED. PT NOT FOLLOWING COMMANDS, NOT OPENING EYES TO NAME, NOT TRACKING, RESPONDS TO PAIN WITH A GRIMACE. DAUGHTER VISITED TODAY BETWEEN [phone], REPORTS SHE WILL BE BACK AROUND 0930. VITAL SIGNS STABLE, PRN ATIVAN USED TO CALM PT BETWEEN SUCTIONING, PT HAS COUGHING/GAGGING EPISODES, ATIVAN APPEARS TO CALM PT DURING ATTACKS.
[2018-12-13] VITALS (25 sets, daily range): BP systolic 120–160; BP diastolic 51–74
[2018-12-13 05:15] LABS: BE(vivo) 2.9 mmol/L (-2 to +3); HCO3 27.4 mmol/L (22.0-26.0); PCO2 42.1 mmHg (35.0-45.0); PO2 95.6 mmHg (80.0-100.0); pH 7.432 (7.360-7.450); sO2 97.5 % (92.0-98.0)
[2018-12-13 05:43] LABS: ABSOLUTE NEUTROPHILS 7.1 thou/uL (1.4-8.2); BASOPHILS 1.2 % (0.0-2.0); EOSINOPHILS 1.5 % (0.0-3.0); HEMATOCRIT 34.1 % (37.0-47.0); HEMOGLOBIN 11.1 gm/dL (12.0-15.0); LYMPHOCYTES 22.9 % (24.0-44.0); MCHC 32.5 g/dL (28.0-37.0); MCV 98.2 fL (80.0-100.0); MONOCYTES 6.4 % (1.0-8.0); PLATELET COUNT 292 thou/uL (150-400); RBC 3.47 mil/uL (4.20-5.00); RDW 13.3 % (10.5-14.5); WBC 10.4 thou/uL (4.0-11.0)
[2018-12-13 06:00] LABS: ALBUMIN 1.7 g/dL (3.4-5.0); CALCIUM 8.8 mg/dL (8.5-10.1); CREATININE 0.6 mg/dL (0.6-1.0); MAGNESIUM 1.5 mg/dL (1.8-2.4); POTASSIUM 3.7 mmol/L (3.5-5.1); TOTAL BILIRUBIN 0.5 mg/dL (<0.1-1.0); TOTAL PROTEIN 6.6 g/dL (6.4-8.2)
--- NOTE | 2018-12-13 13:50 | NUR ---
PT'S DTR REPORTS PT'S SPOUSE MAILED COBRA PAYMENT TODAY. CM DIRECTOR UPDATED.
--- NOTE | 2018-12-13 14:00 | NUR ---
PATIENT PLACED ON WEANING TRIAL AT APPROXIMATELY 1000 THIS AM. PRECEDEX DOWN TO 1 MCG/KG BUT AFTER INITIAL HOUR ANGELINA BECAME RESTLESS AND AGGITATED KICKING LEFT LEG OUT OF THE BED, SCOOTING DOWN IN THE BED, AND ATTEMPTING TO TURN HERSELF SIDE WAYS IN THE BED. AWAKE AND KICKING AT STAFF. RESP THERAPY INFROMED AND PATIENT PLACED BACK ON THE VENT AT APPROXIMATELY 1150 PRECEDEX WEANED BACK UP AND ATIVAN GIVEN. PATIENT RESTING QUIETLY, DAUGHTER IN FOR SUPERVISED VISIT.
--- NOTE | 2018-12-13 18:04 | NUR ---
ASSISTING W PT CARE. EARLIER PT VERY AWAKE,VERY PURPOSEFUL,TRYING TO EXTUBATE SELF,TONGUE OUT ETT.WILL NOT FOLLOW 1 OR 2 STEP COMMANDS. ATIVAN GIVEN W/O ANY CALMING OF PT. FENTANYL GIVEN,PT SHIFTING SELF IN BED,FROWNING,GRIMACING... PT RESTFUL AFTER FENTANYL GIVEN.NOT PROGRESSING TOWARD VENT GOALS.--VW
[2018-12-14] VITALS (26 sets, daily range): BP systolic 107–186; BP diastolic 54–88
[2018-12-14 05:53] LABS: HEMATOCRIT 33.4 % (37.0-47.0); MCH 31.9 pg (26.0-34.0); MCHC 32.9 g/dL (28.0-37.0); MCV 97.2 fL (80.0-100.0); RBC 3.44 mil/uL (4.20-5.00); RDW 13.2 % (10.5-14.5); WBC 9.5 thou/uL (4.0-11.0)
[2018-12-14 06:07] LABS: CALCIUM 8.6 mg/dL (8.5-10.1); CREATININE 0.5 mg/dL (0.6-1.0); MAGNESIUM 1.7 mg/dL (1.8-2.4); POTASSIUM 3.8 mmol/L (3.5-5.1)
--- NOTE | 2018-12-14 09:00 | NUR ---
DAUGHTER AT BEDSIDE THIS AM FOR 30 MIN SCHEDULED VISIT WITH HER MOTHER. PATIENT WOULD FOLLOW COMMANDS FOR DAUGHTE SUCH SQUEEZE HAND AND WOULD MOUTH YES NO ANSWERS TO QUESTIONS. DAUGHTER STATED THAT HER MOTHER HAS BEEN IN A DARK PLACE FOR QUITE A WHILE AND VOICED THAT SHE WANTED TO LEAVE HER ON WEDNESDAY NIGHT WHEN THEY HAD A GIRL'S MOVIE NIGHT. DAUGHTER SPOKE WITH DR KRAMER WHEN HE WAS ROUNDING,
--- NOTE | 2018-12-14 10:26 | NUR ---
PATIENT PLACED ON CPAP AT 0830 THIS AM BY NIA. RESP RATE 12 TO 17 WITH OCC PERIODS OF APNEA. O2 SAT READING 100%, OCC AGGITATE, KICKING LEGS OVER THE BED AND MOUTHING WORD, CLAMPING MOUTH CLOSED WHEN DOING ORAL CARE. MONITOR SHOWED NSR DURING TRIAL WITH HEART RATE IN THE 60'S TO 70'S. PLACED BACK ON VENT BY RT AFTER HAVING LONGER PERIODS OF TIME.
[2018-12-15] VITALS (35 sets, daily range): BP systolic 107–171; BP diastolic 52–80
[2018-12-15 05:18] LABS: CREATININE 0.5 mg/dL (0.6-1.0)
[2018-12-15 05:28] LABS: ABSOLUTE NEUTROPHILS 6.2 thou/uL (1.4-8.2); BASOPHILS 0.6 % (0.0-2.0); EOSINOPHILS 1.9 % (0.0-3.0); HEMATOCRIT 33.9 % (37.0-47.0); HEMOGLOBIN 11.2 gm/dL (12.0-15.0); LYMPHOCYTES 25.5 % (24.0-44.0); MCH 32.1 pg (26.0-34.0); MCHC 32.9 g/dL (28.0-37.0); MCV 97.5 fL (80.0-100.0); MONOCYTES 6.2 % (1.0-8.0); PLATELET COUNT 319 thou/uL (150-400); POLYS 65.8 % (36.0-66.0); RBC 3.48 mil/uL (4.20-5.00); RDW 13.6 % (10.5-14.5); WBC 9.5 thou/uL (4.0-11.0)
--- NOTE | 2018-12-15 06:23 | NUR ---
PATIENT IS VERY IMPULSIVE AND RESTLESS. REMAINS ON THE VENTILATOR AT 40% FIO2 WITH PRECEDEX INFUSING AT 1.4 MCG/KG/HR. PATIENT HAS A LILY PICC LINE AND CROUCH THAT IS INTACT AND DRAINING TO GRAVITY. NO ACUTE EVENTS OCCURRED AND HOURLY ROUNDING COMPLETED. 2009 PATIENT PULLED OUT OG TUBE. DID NOT REPLACE TUBE D/T POSSIBLY BEING EXTUBATED SINCE PATIENT HAD A CPAP TRIAL OF 4+ HOURS.
--- NOTE | 2018-12-15 08:00 | NUR ---
Dr Courtney to see requested patient to be placed on cpap. Pt disha 40/5 hr/68-70 RR 16-24, sats 100%. Pt is waking up legs all over the place and repostions herself to try to get the ETT. Restraints on w orders. will cont POC.
[2018-12-15 08:59] LABS: BE(vivo) 3.5 mmol/L (-2 to +3); HCO3 27.6 mmol/L (22.0-26.0); PCO2 40.1 mmHg (35.0-45.0); PO2 124.3 mmHg (80.0-100.0); pH 7.456 (7.360-7.450); sO2 98.6 % (92.0-98.0)
--- NOTE | 2018-12-15 12:00 | NUR ---
No change in patients assessment. >1500 from Lasix.
--- NOTE | 2018-12-15 16:00 | NUR ---
Patient Rest well after giving her Ativan. VSS.
--- NOTE | 2018-12-15 18:00 | NUR ---
SBP >160 hydralizine given as ordered. Pt resting will cont to monitor. Reort to oncoming RN.
--- NOTE | 2018-12-15 19:39 | NUR ---
1030 Nusrat allowed in the room with a sitter for 45 mins. Ms Cavazos follws her and is trying to tell her something but will not fully follow commands I give her.
[2018-12-16] VITALS (44 sets, daily range): BP systolic 92–180; BP diastolic 44–80
[2018-12-16 05:12] LABS: HEMATOCRIT 34.2 % (37.0-47.0); HEMOGLOBIN 11.2 gm/dL (12.0-15.0); MCH 31.7 pg (26.0-34.0); MCHC 32.8 g/dL (28.0-37.0); MCV 96.7 fL (80.0-100.0); RBC 3.54 mil/uL (4.20-5.00); RDW 13.3 % (10.5-14.5); WBC 11.1 thou/uL (4.0-11.0)
[2018-12-16 05:28] LABS: CALCIUM 8.9 mg/dL (8.5-10.1); CREATININE 0.7 mg/dL (0.6-1.0); POTASSIUM 3.8 mmol/L (3.5-5.1)
--- NOTE | 2018-12-16 05:52 | NUR ---
NO OVERNIGHT EVENTS. PT. FOLLOWS SIMPLE COMMANDS. INCREASED RESTLESSNESS AND AGITATION. VSS. ASSESSMENTS AND VITAL SIGNS CHARTED. MEDICATION TITRATION CHARTED. CONTINUE TO FOLLOW POC. PT. PROGRESSING TOWARDS GOALS. WILL CONTINUE TO MONITOR.
[2018-12-16 08:12] LABS: BE(vivo) 2.3 mmol/L (-2 to +3); PCO2 42.1 mmHg (35.0-45.0); PO2 117.7 mmHg (80.0-100.0); pH 7.425 (7.360-7.450); sO2 98.4 % (92.0-98.0)
--- NOTE | 2018-12-16 16:16 | NUR ---
PT EXTUBATED TODAY. REMAIINS CONFUSED AND SOMULENT. SITTER IN ROOM SINCE EXTUBATION PT ADMITTED SUICIDE ATTEMPT/DRUG OD. PSYCH TO SEE. SON RAMON SHAVER CALLED CM TODAY ASKING WHY HE CANNOT CALL TO GET INFO ON PT. DISCUSSSED WITH RESIDENTIAL CARPET INSTALLER AND SECOND OPERATOR. INFORMED RAMON ONLY GISSELLE EISENBERG ABLE TO GET INFO ON PT UNTIL PSYCH HAS SEEN PT AND MADE RECOMMENDATIONS.
--- NOTE | 2018-12-16 16:25 | NUR ---
PT IS ALERT AND AWAKE TO SELF WITH CONFUSION. SAYS SHE SEE PEOPLE. CONFUSED AND IMPULSIVE. LUNGS ARE CLEAR TO DIMINISHED. SCDS ON BILATERAL BATH DONE. DR. MUSE HERE TO SEE PT FOR EVAULATION. PT GOT EXTUBATED TODAY ON ROOM AIR. VS STABLE AND OXYGEN SATURATION IS 95 PERCENT. USED ATIVAN X1 FOR PT. LEGS WERE KICKING UP IN THE AIR. WILL CONTINUE TO ASSESS AND MONITOR IN RESTRAINTS FOR SAFETY AND SITTER AT BEDSIDE PER JERAD
[2018-12-17] VITALS (49 sets, daily range): BP systolic 108–179; BP diastolic 48–120
[2018-12-17 03:42] LABS: HEMOGLOBIN 11.2 gm/dL (12.0-15.0); MCH 31.1 pg (26.0-34.0); MCHC 31.9 g/dL (28.0-37.0); MCV 97.4 fL (80.0-100.0); RBC 3.6 mil/uL (4.20-5.00); WBC 11.6 thou/uL (4.0-11.0)
[2018-12-17 04:07] LABS: CALCIUM 8.9 mg/dL (8.5-10.1); CREATININE 0.6 mg/dL (0.6-1.0); POTASSIUM 3.6 mmol/L (3.5-5.1)
[2018-12-18] VITALS (43 sets, daily range): BP systolic 108–176; BP diastolic 49–103
--- NOTE | 2018-12-18 04:33 | NUR ---
NO OVERNIGHT EVENTS. 1:1 MAINTAINED WITH SITTER. PT. HAS CRYING OUTBURSTS AND REMAINS RESTLESS. CONTINUES TO HAVE HALLUCINATIONS. VSS. MEDICATION TITRATION CHARTED. ASSESSMENTS AND VITAL SIGNS CHARTED. WILL CONTINUE TO MONITOR.
--- NOTE | 2018-12-18 09:39 | NUR ---
Pt is alert, oriented x 2 (Person & Place-could tell the name of the [employer] president of [place]. Still delusional; talking about cat & babies and told cat was crawling on her limbs. Sitter at bedside. Soft restraints in place. Pt kept trying to get out of bed. This nurse and the sitter repositioned pt. Pt sometimes shows restless behavior then was crying and angry. 0920-SBP was >160s. HydrAlazine 10mg was administered per order.
[2018-12-19] VITALS (38 sets, daily range): BP systolic 119–181; BP diastolic 50–76
--- NOTE | 2018-12-19 05:17 | NUR ---
NO OVERNIGHT EVENTS. RESTRAINTS REMOVED AT 0345. PT. IS MORE COHERENT AND IS ORIENTED TO SELF AND LOCATION. FOLLOWS COMMANDS AND TAKES DIRECTION WELL. 2 LARGE BM. MEDICATION TITRATION CHARTED. ASSESSMENTS AND VITAL SIGNS CHARTED. PT. PROGRESSING TOWARDS GOALS. WILL CONTINUE TO MONITOR.
--- NOTE | 2018-12-19 16:41 | NUR ---
Patient progressing towards plan of care goals of increasing strength and endurance, improving nutritional intake, monitoring glucose levels and treating according to physician orders. Dr. De La Fuente to round and visit patient to see if she can be cleared for visitors.
--- NOTE | 2018-12-19 22:19 | NUR ---
PT'S HR AROUND 130 AND BP AROUND 170'S. PT WAS GIVEN ATIVAN AND HYDRALAZINE. PT HR STILL ELEVATED. ABDULLAHI MENDOZA WAS CALLED AT 2215. ONE TIME DOSE OF LOPRESSOR 5 MG ORDER GIVEN. PT IS 1 AND 1/2 PACK CIGARETTE SMOKER. ORDER FOR 21 MG NICOTINE PATCH GIVEN BY ABDULLAHI MENDOZA.
[2018-12-20] VITALS (26 sets, daily range): BP systolic 107–169; BP diastolic 43–79
--- NOTE | 2018-12-20 00:37 | NUR ---
DR. MUSE WAS CALLED AT 21:08 TO CHECK IF SHE WAS ROUNDING THE PT TONIGHT. VOICE MAIL LEFT BY THIS RN. PT'S DAUGHTER WANTED TO KNOW IF PT CAN HAVE VISITORS IN THE ROOM.
--- NOTE | 2018-12-20 01:49 | NUR ---
PT TACHYCARDIC AND HYPERTENSIVE. PRN ATIVAN GIVEN BUT NO EFFECT ON HEART RATE. DRENCHER REJI CALLED AT 0140. GAVE AN ORDER FOR 500 CC BOLUS.
[2018-12-20 05:47] LABS: HEMATOCRIT 32.5 % (37.0-47.0); HEMOGLOBIN 10.5 gm/dL (12.0-15.0); MCH 31.6 pg (26.0-34.0); MCHC 32.4 g/dL (28.0-37.0); MCV 97.5 fL (80.0-100.0); RBC 3.33 mil/uL (4.20-5.00); RDW 13.5 % (10.5-14.5); WBC 12.7 thou/uL (4.0-11.0)
[2018-12-20 05:55] LABS: CALCIUM 8.8 mg/dL (8.5-10.1); CREATININE 0.6 mg/dL (0.6-1.0); MAGNESIUM 1.3 mg/dL (1.8-2.4); POTASSIUM 3.3 mmol/L (3.5-5.1)
--- NOTE | 2018-12-20 08:40 | EKG ---
[address] [address] ELECTROCARDIOGRAM REPORT Name: LONA MILAN Room #: 246-P ADM IN M.R.#: [id number] Admission: 12/06/18 Attend Phys: Lan Colon MD Discharge: Date of : 67 Report #: [id number] THIS REPORT FOR: //name// [facility] Test Date: 2018-12-20 Test Time: 08:25:16 Pat Name: LONA LYONES Department: Room: [facility] Gender: F Ekg/Ecg Technician: LAVELLE : 1965 Requested By: Karlee So Order Number: [id number] MD: Demetrio Meza Measurements Intervals [place] Rate: 116 P: 74 PA: 128 QRS: 47 QRSD: 82 T: 241 QT: 322 QTc: 448 Interpretive Statements Sinus tachycardia Nonspecific ST and T wave abnormality Compared to ECG 12/06/2018 00:41:42 No significant change was found Electronically Signed On 12-20-2018 8:40:41 CDT by Demetrio Meza [email or web address] <ELECTRONICALLY SIGNED> By: Demetrio Meza MD, [facility] 12/20/18 0840 4 4 Demetrio Meza MD, [facility] /EPI
--- NOTE | 2018-12-20 14:16 | NUR ---
FOLLOWIING FOR DC PLANNING. CLINICAL INFO REVIEWED. PT DEBILITATED AND NOT MEDICALLY STABLE TODAY FOR INPT PSYCH TRANSFER. DR. MUSE WAS ABLE TO INTERVIEW PT TODAY AND PT IS VOLUNTARY FOR INPT PSYCH PLACEMENT. CURRENTLY NO ACTIVE MEDICAL BENEFITS, DTR INDICATES PT'S SPOUSE LOST JOB IN AND ELECTED COBRA COVERAGE AND MAILED PAYMENT LAST WEEK TO COVER THROUGH DECEMBER 2018, THEN PALN FOR MONTHLY PAYMENT. CALLED PT'S DTR SINGH TO INFORM HER DR. MUSE INDICATES DTR MAY VISIT PT, PT HAS TRANSFER ORDERS TO M/S TELE, AND TO ASK DTR TO REACH OUT R/T COBRA TO PROVIDE CM WITH CONTACT OR THE NAME OF INSURANCE PROVIDER. DC PLAN INPT PSYCH STAY, OPTIONS DEPENDENT UPON WHETHER COBRA BENEFITS ACTIVE. BENEFITS
[2018-12-20 14:24] LABS: MAGNESIUM 1.8 mg/dL (1.8-2.4); POTASSIUM 3.7 mmol/L (3.5-5.1)
--- NOTE | 2018-12-20 14:55 | NUR ---
PATIENT UP IN THE CHAIR, LESS RESTLESS. LEG STRENGTH IMPROVING WITH MOVING FROM THE CHAIR TO THE COMMODE SHE IS ABLE TO STAND UP STRAIGHTER AND MOVE HER FEET. MONITOR SHOWING NSR TO ST WITH HEART RATE 90'S TO LOW 100'S, BUT ELEVATED WITH ACTIVITY. MAG AND POTASSIUM LEVELS REPEATED AFTER INFUSION AND NOTED TO BE WITHIN PARAMATERS.
--- NOTE | 2018-12-20 17:24 | NUR ---
VASCULAR ACCESS NURSE ROUNDING THIS AM- KCL AND MG REPLACEMENT ORDER NOTED THEN NO LONGER ON IV MEDS? UP IN CHAIR WITH A 1:1 SITTER. THIS PATIENT NOW HAS ORDERS TO TRANSFER TO THE MEDICAL FLOOR. STRONGLY RECOMMEND D/C OF CENTRAL LINE ACCESS AT THIS POINT TO DECREASE RISK OF INFECTION.
--- NOTE | 2018-12-20 18:45 | NUR ---
PATIENT TRANSFERRED TO 354 PER BED, REPORT CALLED TO MADINA COLON WITH PATIENT. PATIENT CALM AND COOPERATIVE.
[2018-12-20 19:09] LABS: FOLIC ACID 11.3 ng/mL (8.6-58.9)
[2018-12-21 04:29] VITALS: BP 158/69
--- NOTE | 2018-12-21 05:55 | NUR ---
PT MAKING SLOW PROGRESS TOWARDS GOALS. PT HAS BEEN CALM BUT IMPULSIVE AT TIMES. PT FREQUENTLY ASKING FOR CIGARETTES. HAS STATED THAT SHE IS GOING TO LEAVE AND WOULD HAVE NO TROUBLE GETTING A RIDE. REALITY ORIENTATION PROVIDED. PT STATES SHE DOES NOT RECALL OVER DOSING ON MEDICATIONS. ON ROOM AIR THROUGHOUT THE NIGHT. 1:1 AT BEDSIDE FOR SI.
[2018-12-21 07:52] VITALS: BP 147/68
[2018-12-21 08:09] LABS: ABSOLUTE NEUTROPHILS 9.5 thou/uL (1.4-8.2); BASOPHILS 1.8 % (0.0-2.0); EOSINOPHILS 1.8 % (0.0-3.0); HEMATOCRIT 34.2 % (37.0-47.0); HEMOGLOBIN 11.2 gm/dL (12.0-15.0); LYMPHOCYTES 25.6 % (24.0-44.0); MCH 31.9 pg (26.0-34.0); MCHC 32.7 g/dL (28.0-37.0); MCV 97.7 fL (80.0-100.0); MONOCYTES 7.1 % (1.0-8.0); PLATELET COUNT 589 thou/uL (150-400); POLYS 63.7 % (36.0-66.0); RDW 13.4 % (10.5-14.5); WBC 14.8 thou/uL (4.0-11.0)
[2018-12-21 08:25] LABS: CALCIUM 9.6 mg/dL (8.5-10.1); CREATININE 0.6 mg/dL (0.6-1.0); MAGNESIUM 1.5 mg/dL (1.8-2.4); PHOSPHORUS 3.6 mg/dL (2.5-4.9); POTASSIUM 4.1 mmol/L (3.5-5.1); TOTAL BILIRUBIN 0.6 mg/dL (<0.1-1.0); TOTAL PROTEIN 7.4 g/dL (6.4-8.2)
[2018-12-21 11:48] VITALS: BP 154/81
--- NOTE | 2018-12-21 14:57 | NUR ---
SW reviewed chart and spoke with nursing and attending physician. Pt was transferred to from ICU. 1:1 sitter at bedside. Pt may be medically stable for transfer to inpt psych tomorrow. SW met with pt at bedside to discuss. Pt states she is unsure if she will go to inpt psych. SW explained benefits and that physicians will assist with making recommendations. KIKE spoke with pt's dtr, Sasha, via phone to provide update. Pt's dtr states that [place] go [place] [facility] would prefer [facility] or possibly [facility]. SW explained that it would depend on bed availability once pt is medically stable. Pt's dtr verbalized understanding. Pt's dtr requesting call from psych to discuss if pt's son, Farhad, is able to visit pt. SW notified psych and provided contact info for Sasha. KIKE is following to assist as needed with discharge planning.
[2018-12-21 18:58] VITALS: BP 140/58
[2018-12-21 23:36] LABS: URINE BILIRUBIN NEGATIVE (Negative); URINE BLOOD NEGATIVE (Negative); URINE CLARITY SL CLOUDY; URINE COLOR YELLOW; URINE GLUCOSE-RANDOM* NEGATIVE (Negative); URINE KETONES NEGATIVE (Negative); URINE LEUKOCYTES-REFLEX TRACE (Negative); URINE NITRITE-REFLEX NEGATIVE (Negative); URINE PROTEIN (DIPSTICK) TRACE (Negative); URINE SPECIFIC GRAVITY >= 1.030 (1.005-1.035); URINE UROBILINOGEN 0.2 E.U./dl (0.2-1.0)
[2018-12-22 03:29] VITALS: BP 157/70
[2018-12-22 05:19] LABS: ABSOLUTE NEUTROPHILS 6.7 thou/uL (1.4-8.2); BASOPHILS 1.7 % (0.0-2.0); EOSINOPHILS 3.5 % (0.0-3.0); HEMATOCRIT 35.2 % (37.0-47.0); HEMOGLOBIN 11.2 gm/dL (12.0-15.0); LYMPHOCYTES 32.8 % (24.0-44.0); MCH 31.3 pg (26.0-34.0); MCHC 31.9 g/dL (28.0-37.0); MCV 98.2 fL (80.0-100.0); MONOCYTES 5.5 % (1.0-8.0); PLATELET COUNT 538 thou/uL (150-400); POLYS 56.5 % (36.0-66.0); RBC 3.58 mil/uL (4.20-5.00); RDW 13.3 % (10.5-14.5); WBC 11.8 thou/uL (4.0-11.0)
[2018-12-22 05:37] LABS: CALCIUM 9.4 mg/dL (8.5-10.1); CREATININE 0.7 mg/dL (0.6-1.0); MAGNESIUM 1.7 mg/dL (1.8-2.4); PHOSPHORUS 4.3 mg/dL (2.5-4.9); POTASSIUM 4.4 mmol/L (3.5-5.1)
[2018-12-22 07:08] VITALS: BP 153/70
--- NOTE | 2018-12-22 07:47 | NUR ---
PT MAKING SLOW PROGRESS TOWARDS GOALS. PT SLEPT VERY LITTLE OVERNIGHT. RESTLESS AT TIMES BUT NO AGITATION REPORTED OR OBSERVED. DID NOT EXPRESS ANY DELUSIONAL THOUGHTS. DAUGHTER STATED THAT THIS MORNING PT HAD BELIEVED THAT HER HAD AND THAT SHE ACCEPTED THE INFORMATION THAT HE WAS STILL ALIVE AND AT HOME.
--- NOTE | 2018-12-22 12:52 | NUR ---
KIKE reviewed chart and spoke with nursing and attending physician. Pt is medically stable for transfer to an inpt psych facility. KIKE spoke with [facility] intake, Anastasiya, who states they do not currently have beds, but may have some later today. KIKE met with pt and dtr, Sasha, at bedside. Pt has 1:1 sitter present at bedside. SW provided update. Pt and dtr both request eval for [facility]S-[facility] unit. SW explained admission criteria for [facility]. Pt states that she would not want to go to [facility] and [facility] due to location. Pt is an [employer] ASSOC[employer] and states she would not be happy with going to either of the facilities. Pt would be agreeable with considering [facility] location. KIKE contacted Director of Case Mgmt to discuss possibility of [facility] eval. KIKE is following to assist as needed with discharge planning.
[2018-12-22 16:49] VITALS: BP 135/65
[2018-12-22 19:09] VITALS: BP 139/65
--- NOTE | 2018-12-22 20:05 | NUR ---
PATIENT ON 1:1 SISTER. SLOWLY TOWARDS POC GOALS.
[2018-12-23 03:23] VITALS: BP 148/75
--- NOTE | 2018-12-23 04:20 | NUR ---
Daughter and grandkids visited with pt. last night which she enjoyed. She has been alert and oriented , no confusion and in a good mood. Sitter at bedside. No suicidal ideation. Up ad naveen with steady gait.Tolerating room air well with no respiratory distress. Making progress towards care plan goals.
[2018-12-23 08:11] VITALS: BP 150/70
[2018-12-23] MEDS ORDERED: VERAPAMIL HCL180 M4 PO (11:43)
[2018-12-23] MEDS ORDERED: SEROQUEL 25 MG25 M1 PO (11:43)
[2018-12-23] MEDS ORDERED: EFFEXOR XR75 MG PO (11:43)
[2018-12-23] MEDS ORDERED: NICOTINE TRANSD21 M1 TRANSDERM (11:43)
[2018-12-23] MEDS ORDERED: GLIPIZIDE ER2.5 MG PO (11:43)
[2018-12-23] MEDS ORDERED: PEPCID20 MG PO (11:43)
[2018-12-23] MEDS ORDERED: LYRICA 75 MG CA75 MG PO (11:43)
[2018-12-23] MEDS ORDERED: OLANZAPINE ODT5 MG PO (11:43)
[2018-12-23] MEDS ORDERED: VITAMIN B-1100 M2 PO (11:43)
[2018-12-23] MEDS ORDERED: MIRALAX17 GM PO (11:43)
[2018-12-23] MEDS ORDERED: AKWA TEARS OIN3.5 GM OPHTHALMIC (11:43)
[2018-12-23] MEDS ORDERED: TUMS PO (11:43)
[2018-12-23] MEDS ORDERED: METOPROLOL SUCC50 MG PO (11:43)
[2018-12-23] MEDS ORDERED: MULTIVITAMINS PO (11:43)
--- NOTE | 2018-12-23 13:27 | NUR ---
DISCHARGE NOTE: SW reviewed chart and spoke with nursing and attending physician. Pt is medically stable for discharge to [facility] unit today. Pt has 1:1 sitter. Pt moved to [facility] earlier this afternoon. KIKE spoke with pt's dtr, aSsha, via phone to provide update. SW provided room number and contact info for [facility]. [facility] SW to follow and assist as needed with discharge planning.
== END 2018-12-23 13:01 | DRG 917 ==
LOC: ER 23:32 → ICU 12-06 11:18 → EROBS 12-06 11:18 → 2N 12-06 12:36 → ICU 12-06 19:12 → 3W 12-20 18:42
PROVIDERS: Emergency Medicine; Internal Medicine; Internal Medicine Geriatric Medicine; Internal Medicine Pulmonary Disease; Nurse Practitioner Acute Care; Pediatrics; ADMIT Hospitalist
DX: T43.212A Poisoning by selective serotonin and norepinephrine reuptake inhibitors, intentional self-harm, initial encounter (principal); J96.01 Acute respiratory failure with hypoxia; J96.02 Acute respiratory failure with hypercapnia; E43 Unspecified severe protein-calorie malnutrition; K85.90 Acute pancreatitis without necrosis or infection, unspecified; G92 Toxic encephalopathy; F10.239 Alcohol dependence with withdrawal, unspecified; R45.851 Suicidal ideations; T40.4X2A Poisoning by other synthetic narcotics, intentional self-harm, initial encounter; I10 Essential (primary) hypertension; E11.40 Type 2 diabetes mellitus with diabetic neuropathy, unspecified; F10.20 Alcohol dependence, uncomplicated; Y90.9 Presence of alcohol in blood, level not specified; E11.65 Type 2 diabetes mellitus with hyperglycemia; E87.6 Hypokalemia; E83.42 Hypomagnesemia; F32.9 Major depressive disorder, single episode, unspecified; F17.210 Nicotine dependence, cigarettes, uncomplicated; E78.5 Hyperlipidemia, unspecified; D64.9 Anemia, unspecified; F10.229 Alcohol dependence with intoxication, unspecified; L03.039 Cellulitis of unspecified toe; E66.9 Obesity, unspecified; R00.0 Tachycardia, unspecified; Z79.899 Other long term (current) drug therapy; Z79.84 Long term (current) use of oral hypoglycemic drugs; Z88.8 Allergy status to other drugs, medicaments and biological substances; Z91.041 Radiographic dye allergy status; Z91.5 Personal history of self-harm; Z68.33 Body mass index [BMI] 33.0-33.9, adult; Z91.19 Patient's noncompliance with other medical treatment and regimen; Y92.89 Other specified places as the place of occurrence of the external cause; Z23 Encounter for immunization
CPT/HCPCS: 10078; 10879; 27000

== ENCOUNTER 2018-12-23 12:43 | Inpatient (IN) | payer OTHER ==
[~2018-12-23] VITALS: Ht 162.6 cm; Wt 79.5 kg
[~2018-12-23 12:43] MED LIST: AKWA TEARS OIN3.5 GM OPHTHALMIC; EFFEXOR XR150 MG PO; EFFEXOR XR75 MG PO; GLIPIZIDE ER2.5 MG PO; LISINOPRIL2.5 MG PO; LYRICA 50 MG50 MG PO; LYRICA 75 MG CA75 MG PO; METFORMIN HCL500 M3 PO; METOPROLOL SUCC50 MG PO; MIRALAX17 GM PO; MULTIVITAMINS PO; NEURONTIN300 MG PO; NICOTINE TRANSD21 M1 TRANSDERM; OLANZAPINE ODT5 MG PO; PEPCID20 MG PO; SEROQUEL 25 MG25 M1 PO; TUMS PO; VERAPAMIL HCL180 M4 PO; VITAMIN B-1100 M2 PO
--- NOTE | 2018-12-23 13:22 | NUR ---
PT ARRIVES TO FLOOR VIA WC FROM [facility] ACCOMPNIED BY HOSPITAL NURSING STAFF-REPORTED TO HAVE OVERDOSED ON MEDICATION RECENTLY. FULL RANGE AFFECT ON ADMIT-DENIES SI/SH/HI. PROVIDED WITH TOUR OF UNIT-FOOD/FLUIDS OFFERED AND ACCEPTED. ORIENTED TO ROOM AND UNIT. SMILING AND SPONTANEOUSLY VERBAL THROUGHOUT INTERVIEW. ALERT AND ORIENTED X 4 DENIES C/O PAIN. BP 151/78 P-75 R-18 T 97.9 02 SAT 96 PERCENT. DENIES CO PAIN. GAIT STEADY WITHOUT ASSISITVE DEVICES
[2018-12-23 14:26] VITALS: BP 151/78
--- NOTE | 2018-12-23 14:32 | NUR ---
1300 Patient new admit here from 3W for overdose of unknown pills, patient has a hx of ETOH. Patient states she does not remember taking pills or being intubated. Patient states lost job of 28 years and this made patient depressed. Patient is cooperative calm oriented to unit, happy to be here.
[2018-12-23 16:32] VITALS: BP 151/78
[2018-12-23 20:20] VITALS: BP 131/58
[2018-12-24 00:24] VITALS: BP 131/58
--- NOTE | 2018-12-24 03:07 | NUR ---
PT OUT WITH SELECTED FEMALE PEERS EARLY IN THE SHIFT. RELAXED AND ANIMATED. AFTER EVENIG SNACKS, PT TOOK HS MEDS PRESCRIBED W/O PROBLEM. HAS BEEN UP AND DOWN THROUGH THE NIGHT, BUT HAS GENERALLY SLEPT WELL.
[2018-12-24 07:34] VITALS: BP 144/74
--- NOTE | 2018-12-24 08:20 | NUR ---
PT UP SITTING AT TABLE. PT CHEERY THIS AM. PT VERY TALKATIVE WITH PATIENTS AND STAFF. PT TAKING MEDS. WITHOUT ISSUES.
[2018-12-24 08:30] VITALS: BP 144/74
--- NOTE | 2018-12-24 09:23 | NUR ---
PT RECIEVED CEPACOL LOZENGER FOR SORE THROAT.
--- NOTE | 2018-12-24 10:30 | NUR ---
PT REQUSTING SOMETHING FOR HER COUGH AND SORE THROAT.
--- NOTE | 2018-12-24 11:25 | NUR ---
PT ASKING ABOUT A FLU SHOT, WILL SEE IF SHE RECIEVED ONE.
--- NOTE | 2018-12-24 11:49 | NUR ---
ADM QUAIFENESIN 200MG/10ML FOR COUGH. PT ALSO GOT FLU SHOT.
--- NOTE | 2018-12-24 16:15 | NUR ---
PT WANTING SOMETHING FOR HEADACHE. PT STATED SHE HAS TAKEN TYLENOL BEFORE. TOLD PT THAT THE ALLERGY WAS FROM VICODIN, PT STATED SHE WILL TAKE VICODIN.
--- NOTE | 2018-12-24 16:59 | NUR ---
ADM TYLENOL 325MG 2 TABS PO FOR HEADACHE TO FRONTAL OF 7 ON 1-10 SCALE AND ALSO ADM CEPACAOL LOZENGER.
--- NOTE | 2018-12-24 18:20 | NUR ---
ADM MYLANTA 15ML FOR UPSET STOMACH AND ROBITUSSIN 200MG/10ML FOR COUGH.
[2018-12-24 20:48] VITALS: BP 139/77
[2018-12-24 23:20] VITALS: BP 139/77
--- NOTE | 2018-12-24 23:31 | NUR ---
PATIENT WAS UP IN DINING ROOM WHEN THIS NURSE CAME ON SHIFT. SHE WAS VISITING WITH ANOTHER PEER. PATIENT VSS. NO BEHAVIORS TONIGHT. DENIES SI/HI. SHE WANTED TO GO TO BED EARLY D/T HER ROOMMATE USUALLY DOESN'T SLEEP MUCH AND KEEPS HER AWAKE. PATIENT TOOK HER MEDS AND WENT TO BED. SHE DID ASK IF SHE HAD SEROQUEL TO TAKE TONIGHT. i TOLD HER NO. SHE STATES SHE HAS TAKEN SEROQUEL AT NIGHT AT HOME. PATIENT HAS BEEN UP ONCE SINCE GOING TO BED AT 1999. SHE GOT UP AT 2230 TO SEE WHAT TIME IT WAS AND THEN WENT BACK TO BED. WILL CONTINUE TO MONITOR.
--- NOTE | 2018-12-25 04:43 | NUR ---
PATIENT HAS SLEPT MOST OF NIGHT AND HAS NOT HAD ANY COUGHING. HAS NOT C/O SORETHROAT OR NEEDED ANY CEPACOL. PATIENT SLEEPING NOW. CONTINUING TO MONITOR.
[2018-12-25 08:00] VITALS: BP 123/67
[2018-12-25 08:31] VITALS: BP 123/67
--- NOTE | 2018-12-25 08:52 | NUR ---
PT SITTING IN DINNING ROOM. PT FINISHED WITH BREAKFAST. PT COMPLIANT WITH MEDS AND ATTENDING GROUPS. PT DENIES ANY SI. PT STATED SHE DIDN'T REMEMBER TAKING ANY PILLS AT [facility]. PT LIKES TO HELP OTHER PEOPLE. PT UP AD ANYA WITH STEADY GAIT.
--- NOTE | 2018-12-25 12:16 | NUR ---
ADM CEPRACOL LOZENGER FOR SORE THROAT.
--- NOTE | 2018-12-25 13:56 | NUR ---
ADM TYLENOL 325MG 2 TABS PO FOR NOT FEELING VERY GOOD. PT STATED IT COMES AND GOES. PT HAS BEEN WANTING COUGH SYRUP TODAY AND LOZENGERS AND TYLENOL.
--- NOTE | 2018-12-25 16:51 | NUR ---
ADM GUAFENISIN 200MG/10ML PO FOR COUGH. PT HASN'T COUGHED MUCH TODAY, HAS HAD A HORSE THROAT.
--- NOTE | 2018-12-25 18:08 | NUR ---
ADM MYLANTA 15MG PO FOR UPSET STOMACH.
--- NOTE | 2018-12-25 19:32 | H ---
[facility] [place] [address] HISTORY AND PHYSICAL Name: LONA MILAN Mitra Room #: 520A-A ADM IN ..#: [id number] Admission: 12/23/18 Attend Phys: Morgan Dobbins DO Discharge: Date of : 67 Report #: [id number] THIS REPORT FOR: //name// CC: Morgan Dobbins [facility] unknown DATE OF SERVICE: 12/23/2018 INPATIENT PSYCHIATRIC EVALUATION ATTENDING PHYSICIAN: Morgan Dobbins DO TELEPHONE SALES AGENT: Nico Lowry MD HISTORY OF PRESENT ILLNESS: The patient's original presentation on the 12/06/2018, she was brought by EMS, status post an overdose. Literally, her family threw a green party, in which she became intoxicated. Her blood alcohol level was in the 280s. She went to bed about 9:00 p.m., took unknown amounts of various medications, this included lisinopril and gabapentin. The patient admitted to taking gabapentin, Lyrica, Effexor, and half tramadol. She confirmed on interview that she did this with the intention of harming herself. She reports she drank a whole lot this evening. She describes herself as an alcoholic and needed help. She said maybe that is the reason I took all the pills as to get help. The patient additionally complained of dry mouth, difficulty speaking. The patient was admitted for the overdose and was placed on a ventilator on 12/07/2018, she had about a 10-day course of mechanical ventilation. Dr. Mar De La Fuente saw her when she was extubated. Apparently, she reported little memory of Dr. De La Fuente advancing up to admission. She said she knew she had a lot of alcohol and medication. She did not refute it with intentional overdose. The patient reported feeling down, depressed leading up to admission. She denies that now. The patient was done on one-to-one when out of the ICU. There were 3 affidavits including one from her daughter. Her daughter, Aurelia, is her main support person. The patient reported to me that she lives with an alcoholic , this is her second . MEDICAL HISTORY: Includes hyperglycemia, alcohol withdrawal and intoxication, acute respiratory failure with hypoxia, hypokalemia and hypomagnesemia. ALLERGIES: ACETAMINOPHEN. PAST MEDICAL HISTORY: Additionally includes hypertension, diabetes, diabetic neuropathy, alcoholism. Substance use: heavy for alcohol, continuous last 3-4 years FAMILY HISTORY: Not available. [facility] [address] [place] [address] HISTORY AND PHYSICAL Name: DWIGHT MILANAlana Manriquez Room #: 520A-A [facility] IN [facility]#: [id number] Admission: 12/23/18 Attend Phys: Morgan Dobbins DO Discharge: Date of : 67 Report #: [id number] Substance Use: She smoked 35 years, one-half to 1 pack per day. Reports she has been alcoholic continuously for 3-4 years.daily amount not quantified, but sounds like beer. PAST PSYCHIATRIC HISTORY: Reports past suicide attempt at age 33. This was prompted by an interaction with her first . The patient does not report any recent addiction treatment. She is interested in this. PHYSICAL EXAMINATION: Normal gait and station. MENTAL STATUS EXAMINATION: This is a well-developed, fairly nourished female appearing stated age. Attention intact. Concentration intact. Speech is normal rate, volume and tone. Thought process is linear and goal oriented. Thought content focused, future oriented. No psychomotor agitation. No psychomotor retardation. The patient denied SI, HI, denies hopelessness, helplessness. Memory not formally tested. Insight limited. Judgment fair to limited. Fund of knowledge average. FORMULATION: A 53-year-old female status post suicide attempt with alcoholism and marital discord. DIAGNOSES: At this time, unspecified depression, substance use disorder for alcohol, severe alcohol withdrawal completed. Comorbidities include diabetes mellitus, hypertension, diabetic neuropathy. PLAN: She does not appear to be depressed today. I will decrease her Effexor to 37.5 mg p.o. daily. We will continue verapamil 180 mg p.o. daily. We will change nicotine from 21 to 40 mg daily, remove at night. Continue multivitamin. Continue metoprolol succinate 100 mg p.o. daily. Add metformin 500 mg p.o. daily and glipizide 5 mg p.o. daily for hyperglycemia, famotidine 20 mg p.o. daily for GERD and house PRNs. ESTIMATED LENGTH OF STAY: 4-5 days. STRENGTHS: She is insured, has some family support. WEAKNESSES: Second lifetime suicide attempt, marital strife. Time spent on interview, review of records, and coordination of care of this patient is approximately 60 minutes. <ELECTRONICALLY SIGNED> By: Morgan Dobbins DO 12/25/181931 01 26 Morgan Dobbins DO /nt
[2018-12-25 20:22] VITALS: BP 142/75
[2018-12-26 00:42] VITALS: BP 142/75
--- NOTE | 2018-12-26 00:47 | NUR ---
PATIENT IN BED WHEN THIS NURSE CAME ON AT 1900. SHE GOT UP AROUND 1999 AND CAME OUT OF ROOM. SHE STATES SHE HAD A HEADACHE EARLIER IN DAY BUT NOT NOW. SHE STATES HER VOICE IS HOARSE BECAUSE SHE WAS WATCHING THE [employer] GAME AND CHEERING FOR THEM. SHE SAID HER THROAT IS SORE OFF AND ON. CEPACOL LOZENGE GIVEN TO PATIENT AT BEDTIME. PATIENT REQUESTED SEROQUEL AT HS TO HELP HER SLEEP. SHE STATES SHE HAD IT ONCE WHEN IN THE HOSPITAL AND IT HELPED HER SLEEP. SHE STATES SHE HAS A HARD TIME FALLING AND STAYING ASLEEP. CALLED AND RECEIVED ORDER FROM KINGSTON REYNA NP FOR TRAZADONE 50MG PO AT HS PRN. PATIENT RECEIVED THE MED AT 2155 AND IS SLEEPING SOUNDLY NOW. PATIENT WAS RELAXED AND FRIENDLY IN CONVERSAATION WITH THIS NURSE THIS EVENING. SHE HAD LARGE BM TODAY. NO EDEMA. VSS. DENIES SI/HI. CONTINUING TO MONITOR.
--- NOTE | 2018-12-26 09:16 | NUR ---
KIKE set up a family meeting for 11:45 on Wednesday. KIKE also met with daughter to discuss any concerns she had about ehr mom going home. SW encourged her dght to create boundaries and support her mom as needed. Pt wants to return home, KIKE suggested that she begin outpt [facility] treatment and this will be provided at D/C. KIKE also suggested that dght get some support for herself thorugh support groups and therapy.
--- NOTE | 2018-12-26 13:16 | NUR ---
KIKE met with pt, psych doctor, and family; her daughter Aurelia, son Farhad, and Samuel. Pt's alcohol use was discussed and it was discovered that they family enables and engages in drinking as a whole. Pt is open to inpatient tx if available; her family is in agreement to receive therapy and counseling for family issues. Pt's also acknowledges that it is in pt's best interest if he stops bringing alcohol into the home. Psych doctor discussed firearms in the home and recommended they be removed; the family admitted to pt owning 2 pistols. It was discussed her Samuel removing those. KIKE contacted [facility] who said they do intakes on a walk-in basis; M-F 8am-4pm. KIKE contacted Aurelia (pt said she wanted her daughter contacted once information about OP MH treatment has been received) and left a vm with this information. SW team will continue to follow pt during her stay.
[2018-12-26 13:28] VITALS: BP 125/77
--- NOTE | 2018-12-26 14:13 | NUR ---
KIKE arranged for a notary to come and sign DPOA paperwork with pt at pt's request. SW team will continue to follo wpt during her stay.
--- NOTE | 2018-12-26 16:33 | NUR ---
PT TEARFUL AFTER FAMILY MEETING STATING "I WAS SO MEAN TO MY FAMILY, I DIDN'T REMEMBER EVERYTHING I DID ONCE THEY TOLD ME I COULD HALF WAY REMEMBER AND I KNOW THEY WERN'T LYING-I AM SO EMBARRESED"1;1 WITHPT. REGARDING GUILT/SHAME-SHAME BEING HARMFUL IN RECEOVERY AND CONTRIBUTING TO SUBSTANCE ABUSE. REPORTING CRUM PAIN RATED AN 8 0N 1-10 SCALE AT APPROX 1600-TYLENOL 650MG PO PRN AT 1630 FOR ABOVE REPORTED
[2018-12-26 19:56] VITALS: BP 123/57
[2018-12-26 23:23] VITALS: BP 123/57
[2018-12-26 23:25] VITALS: BP 123/57
--- NOTE | 2018-12-27 03:35 | NUR ---
PT OUT WITH PEERS EARLY IN THE SHIFT. QUIET AND DEPRESSED. C/O HEADACHE, AND RECEIVED TYLENOL ON DAY SHIFT. CONTINUED TO C/O HEADACHE. CALLED MD AND RECEIVED ORDER FOR IBUPROPHEN. CHECKED ON PT AND SHE WAS ASLEEP. TOOK HS MEDS LATER, ASKED FOR MAALOX FOR STOMACH UPSET, BUT CRUM WAS BETTER. HAS SLEPT WELL THROUGH THE NIGHT.
[2018-12-27] MEDS ORDERED: METOPROLOL SUCC50 MG PO (09:01)
[2018-12-27] MEDS ORDERED: LYRICA 75 MG CA75 MG PO (09:05)
[2018-12-27] MEDS ORDERED: VERAPAMIL HCL180 M4 PO (09:05)
[2018-12-27] MEDS ORDERED: EFFEXOR XR75 MG PO (09:05)
[2018-12-27] MEDS ORDERED: METFORMIN HCL500 M3 PO (09:06)
[2018-12-27] MEDS ORDERED: TRAZODONE HCL50 MG PO (09:06)
[2018-12-27] MEDS ORDERED: GLIPIZIDE ER2.5 MG PO (09:07)
[2018-12-27 09:37] VITALS: BP 132/73
[2018-12-27 11:00] VITALS: BP 132/73
--- NOTE | 2018-12-27 12:27 | NUR ---
assumed care at 0700 this morning. PT. WAS IN BED BUT GOT UP WHEN STAFF WENT IN TO TAKE A B/P AND GET A BLOOD SUGAR. SHE HAS BEEN PLEASANT AND COOPERATIVE WITH STAFF AND PEERS. SHE VERBALIZED CONCERN OF CONTINUING TO DRINK AND THIS WILL ENABLE HER. SHE STATES SHE DOES NOT WANT TO FALL INTO THIS AGAIN, SO MY HAVE TO GO IT ALONE WITHOUT . HER DAUGHTER WAS HERE AT NOON. SHE AND THE PT. WERE GIVEN INSTRUCTIONS. THEY LEFT AT 1200 WITH ALL BELONGINGS, SCRIPTS, AND 'S INSTRUCTIONS. SHE WILL GO TO OUT PT. REHAB. . THEY WERE WALKED DOWN TO THE FRONT DOOR. THEY GOT INTO THE VEHICLE AND DROVE AWAY.
--- NOTE | 2018-12-28 20:31 | D ---
[facility] [place] [address] DISCHARGE SUMMARY Name: LONA MILAN Room #: 520A-A [facility] IN M.R.#: [id number] Admission: 12/23/18 Attend Phys: Morgan Dobbins DO Discharge: 12/27/18 Date of : 67 Report #: [id number] THIS REPORT FOR: //name// CC: Morgan Dobbins [facility] unknown DATE OF SERVICE: 12/27/2018 INPATIENT PSYCHIATRIC DISCHARGE SUMMARY ATTENDING PHYSICIAN: Morgan Dobbins DO. PLATFORM SUPERVISOR AT THE TIME OF DISCHARGE: Nico Lowry MD DISCHARGE DIAGNOSES: Major neurocognitive disorder, single episode, severe degree greatly improved. ADDITIONAL PSYCHIATRIC DIAGNOSIS: Substance use disorder for alcohol, severe. Also, partner relational disorder, medical comorbidities, not otherwise specified, medical comorbidities pancreatitis, resolved, acute hypoxic respiratory failure, status post endotracheal intubation x 10 days, sinus tachycardia, improved, hypertension, severe malnutrition. HOSPITAL COURSE: Discharged to home where she lives with her . Aftercare for this patient will be continuing with intake at [facility] office. The patient had routine medical followup with her PCP within 1 month. There are probably two pistols at home of her husbands that I advised being removed and secured in the initial few months. The patient is recovering. DIET: 1800-calorie diabetic diet. DISCHARGE MEDICATIONS: Include Akwa Tears ointment b.i.d. p.r.n. for dry eyes. Calcium carbonate 500 mg p.o. t.i.d., supplement polyethylene glycol 17 g p.o. daily p.r.n., continue famotidine 20 mg p.o. b.i.d. for GERD, multivitamin p.o. daily, metoprolol succinate 100 mg ER p.o. daily, venlafaxine, hydrochloride 25 mg p.o. daily with extended release Effexor, pregabalin, which is Lyrica 75 mg p.o. b.i.d., verapamil SR 100 mg p.o. daily, glipizide, also metformin 500 mg p.o. daily for hyperglycemia. Recommendation to pursue smoking cessation at this point due to stress. REASON FOR ADMISSION: Transferred from the medical floor following complicated 10 days of overdose requiring intubation. [facility] [address] [place] [address] DISCHARGE SUMMARY Name: LONA MILAN Mitra Room #: 520-A [facility]#: [id number] Admission: 12/23/18 Attend Phys: Morgan Dobbins DO Discharge: 12/27/18 Date of : 67 Report #: [id number] HOSPITAL COURSE: The patient was admitted to Geriatric Psychiatry Unit. She improved rapidly in the milieu ____ family meeting the day prior to discharge. Concepts such as ____ were discussed. The patient should have 6-month followup. On the day of discharge, the patient was not suicidal or homicidal in stable condition. PHYSICAL EXAMINATION: VITAL SIGNS: At time of discharge, temperature 36.9, pulse 71, respirations 18, BP 132/73, O2 sat 99%. MUSCULOSKELETAL: Normal gait and station. MENTAL STATUS EXAMINATION: This is a well-developed, fairly nourished female appearing at least stated age. Attention intact. Concentration is intact. Speech is normal rate, volume and tone. Thought process is linear and goal oriented. Thought content focused, future oriented and goal directed. Memory not formally tested. Insight limited. Judgment limited. Mood and affect: Mood euthymic, fair range. PROGNOSIS: For this patient is guarded and will depend on abstinence from alcohol and participation in Alcoholics Anonymous community and sober living heavily. Time spent on review of records, coordination of care approximately 30 minutes. There are minimal labs done due to the fact she has been in the ICU and largely all laboratories were done at the last being in 12/22/2018. Results called refer to the hospitalist discharge summary from the medical admission. <ELECTRONICALLY SIGNED> By: Morgan Dobbins DO 12/28/18 2031 [id number] Morgan Dobbins DO /nt
== END 2018-12-27 12:00 | disposition home or self-care (01) | DRG 884 ==
LOC: SBH 12:43
PROVIDERS: ADMIT Psychiatry & Neurology Psychiatry
DX: F01.50 Vascular dementia, unspecified severity, without behavioral disturbance, psychotic disturbance, mood disturbance, and anxiety (principal); E43 Unspecified severe protein-calorie malnutrition; J96.01 Acute respiratory failure with hypoxia; J96.02 Acute respiratory failure with hypercapnia; K85.90 Acute pancreatitis without necrosis or infection, unspecified; G93.40 Encephalopathy, unspecified; F10.239 Alcohol dependence with withdrawal, unspecified; E66.9 Obesity, unspecified; F32.9 Major depressive disorder, single episode, unspecified; T50.902A Poisoning by unspecified drugs, medicaments and biological substances, intentional self-harm, initial encounter; I10 Essential (primary) hypertension; E11.40 Type 2 diabetes mellitus with diabetic neuropathy, unspecified; Z91.041 Radiographic dye allergy status; Z91.19 Patient's noncompliance with other medical treatment and regimen; Z68.30 Body mass index [BMI] 30.0-30.9, adult; Z88.8 Allergy status to other drugs, medicaments and biological substances; Y92.89 Other specified places as the place of occurrence of the external cause; Z23 Encounter for immunization
CPT/HCPCS: 10880